=== PATIENT | male | born 1960 | race Caucasian/White ===

== ENCOUNTER 2017-04-01 08:23 | Emergency (ER) | payer OTHER ==
[2017-04-01 09:57] VITALS: BP 135/76
== END 2017-04-01 09:57 | disposition home or self-care (01) ==
LOC: ED 08:23
DX: S39.012A Strain of muscle, fascia and tendon of lower back, initial encounter (principal); R03.0 Elevated blood-pressure reading, without diagnosis of hypertension; X50.0XXA Overexertion from strenuous movement or load, initial encounter; Y93.89 Activity, other specified; Y99.8 Other external cause status; Y92.89 Other specified places as the place of occurrence of the external cause

== ENCOUNTER 2017-04-27 08:01 | Emergency (ER) | payer OTHER ==
[2017-04-27 11:05] VITALS: BP 122/69
== END 2017-04-27 11:15 | disposition home or self-care (01) ==
LOC: ED 08:01
DX: M54.5 Low back pain (principal)